=== PATIENT | male | born 2000 | race African-American/Black ===

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

== ENCOUNTER 2019-04-20 19:14 | Emergency (ER) | payer OTHER ==
[~2019-04-20] VITALS: Ht 188 cm; Wt 95.3 kg
[2019-04-20 20:56] LABS: URINE BILIRUBIN NEGATIVE (Negative); URINE BLOOD NEGATIVE (Negative); URINE CLARITY CLEAR; URINE COLOR YELLOW; URINE GLUCOSE-RANDOM* NEGATIVE (Negative); URINE KETONES NEGATIVE (Negative); URINE LEUKOCYTES-REFLEX NEGATIVE (Negative); URINE NITRITE-REFLEX NEGATIVE (Negative); URINE PROTEIN (DIPSTICK) NEGATIVE (Negative); URINE UROBILINOGEN 0.2 E.U./dl (0.2-1.0)
[2019-04-20] MEDS ORDERED: ZOFRAN ODT4 MG PO (22:31)
[2019-04-20] MEDS ORDERED: NAPROSYN500 MG PO (22:31)
[2019-04-20 22:41] VITALS: BP 132/65
== END 2019-04-20 22:58 | disposition home or self-care (01) ==
LOC: ER 19:14
PROVIDERS: Emergency Medicine
DX: R51 Headache (principal); M54.2 Cervicalgia; R11.0 Nausea; R10.9 Unspecified abdominal pain

== ENCOUNTER 2020-08-28 09:09 | Emergency (ER) | payer OTHER ==
[~2020-08-28] VITALS: Ht 188 cm; Wt 98.4 kg
[~2020-08-28 09:09] MED LIST changes: +ZOFRAN ODT4 MG PO
[2020-08-28 09:17] VITALS: BP 120/54
[2020-08-28] MEDS ORDERED: NOHOMEMEDICATIONS (09:22)
[2020-08-28] MEDS ORDERED: CEPHALEXIN500 MG PO (09:29)
== END 2020-08-28 09:34 | disposition home or self-care (01) ==
LOC: ER 09:09
DX: S91.312D Laceration without foreign body, left foot, subsequent encounter (principal); X58.XXXD Exposure to other specified factors, subsequent encounter

== ENCOUNTER 2021-03-27 23:11 | Emergency (ER) | payer OTHER ==
[~2021-03-27] VITALS: Ht 188 cm; Wt 99.8 kg
[~2021-03-27 23:11] MED LIST changes: +CEPHALEXIN500 MG PO; +NOHOMEMEDICATIONS
[2021-03-27 23:15] VITALS: BP 112/55
[2021-03-27] MEDS ORDERED: CEPHALEXIN500 MG PO (23:48)
== END 2021-03-28 00:01 | disposition home or self-care (01) ==
LOC: ER 23:11
DX: L01.00 Impetigo, unspecified (principal)